=== PATIENT | female | born 1975 | race Caucasian/White ===

== ENCOUNTER 2018-05-20 09:28 | Emergency (ER) | payer OTHER ==
--- NOTE | 2018-05-20 10:23 | ED ---
Lower Extremity Injury HPI - General Chief Complaint: Extremity Injury, Lower Stated Complaint: Ankle Injury Time Seen by Provider: 05/20/18 09:48 Source: patient, RN notes reviewed, old records reviewed Mode of arrival: ambulatory Limitations: no limitations - History of Present Illness Initial Comments: this 43-year-old female presents emergency department today from her rehab facility with chief complaint of right ankle and foot pain. Patient reports she sprained her foot and ankle 3 weeks ago. She's had history of surgery on his foot and ankle. She also reports she's had surgery on the left foot and ankle proximally 3 months ago. Patient states that she is concerned that she may have irritated some of the hardware within her joints. Patient states that she is currently. With a boot on her left foot. Patient states she may have strained her right foot TAKE for her left. Patient states that she has had no other abnormal symptoms. - Related Data Previous Rx's Medication Instructions Recorded Ibuprofen [Motrin] 600 mg PO Q8HR PRN #20 tab 05/20/18 Allergies Allergy/AdvReac Type Severity Reaction Status Date / Time No Known Allergies Allergy Verified 05/20/18 09:36 Review of Systems ROS Statement: Those systems with pertinent positive or pertinent negative responses have been documented in the HPI. ROS Other: All systems not noted in ROS Statement are negative. Past Medical History Past Medical History: Asthma, Hypertension History of Any Multi-Drug Resistant Organisms: None Reported Additional Past Surgical History / Comment(s): right ankle surgery, left foot surgery, DNC Past Psychological History: Anxiety, Depression Smoking Status: Current every day smoker Past Alcohol Use History: Abuse, Heavy Past Drug Use History: None Reported General Exam - General Exam Comments Initial Comments: this is a 43-year-old female. Alert and oriented. No significant distress. Limitations: no limitations General appearance: alert, in no apparent distress Head exam: Present: atraumatic, normocephalic, normal inspection Eye exam: Present: normal appearance, PERRL, EOMI. Absent: scleral icterus, conjunctival injection, periorbital swelling ENT exam: Present: normal exam, mucous membranes moist Neck exam: Present: normal inspection. Absent: tenderness, meningismus, lymphadenopathy Respiratory exam: Present: normal lung sounds bilaterally. Absent: respiratory distress, wheezes, rales, rhonchi, stridor Cardiovascular Exam: Present: regular rate, normal rhythm, normal heart sounds. Absent: systolic murmur, diastolic murmur, rubs, gallop, clicks GI/Abdominal exam: Present: soft, normal bowel sounds. Absent: distended, tenderness, guarding, rebound, rigid Extremities exam: Present: normal inspection, full ROM, normal capillary refill. Absent: tenderness, pedal edema, joint swelling, calf tenderness Left Ankle exam: Present: normal inspection, full ROM Foot/Toe exam: Present: full ROM. Absent: normal inspection (Patient is well- appearing linear incision over the dorsal aspect of the foot measuring partly for 7 m. No evidence of erythema or drainage from the site.) Neurovascular tendon exam: Present: no vascular compromise Gait: observed and normal Right Lower Leg exam: Present: normal inspection, full ROM Ankle exam: Present: normal inspection, full ROM, tenderness (she reports tenderness over the lateral malleolus.) Foot/Toe exam: Present: normal inspection, full ROM Neurovascular tendon exam: Present: no vascular compromise Gait: observed and normal Back exam: Present: normal inspection Neurological exam: Present: alert, oriented X3, CN II-XII intact Psychiatric exam: Present: normal affect, normal mood Skin exam: Present: warm, dry, intact, normal color. Absent: rash Course Vital Signs 05/20/18 09:32 Temperature 98.2 F Pulse Rate 77 Respiratory 18 Rate Blood Pressure 155/107 O2 Sat by Pulse 100 Oximetry Medical Decision Making - Medical Decision Making 43-year-old female presents emergency department today which she plan bilateral knee pain. Patient's had multiple surgeries over both feet. Recent surgery on the left foot. Patient is mainly concerned today of her right foot after she had a rolled ankle injury approximately 3 weeks ago. Patient x-rays at this time are negative for any acute process. - Radiology Data Radiology results: report reviewed Post surgical change in bilateral lower extremities with incompletely united fracture of the base of the left second metatarsal although surgically fixated. No acute fracture dislocation of the right ankle or either foot. Disposition Clinical Impression: Foot sprain, Right ankle sprain Disposition: HOME SELF-CARE Condition: Good Instructions: Foot Sprain (ED), Ankle Sprain (ED) Additional Instructions: Patient advised to rest, ice, elevate extremity. Take antiinflammatory medication for pain. Patient is follow-up with treasury specialist. Return to emergency department if any alarming signs or symptoms occur. Patient should still ambulate with the brace. Prescriptions: Ibuprofen [Motrin] 600 mg PO Q8HR PRN #20 tab PRN Reason: Pain Is patient prescribed a controlled substance at d/c from ED?: No Referrals: Nonstaff,Physician [Primary Care Provider] - 1-2 days Time of Disposition: 10:50
--- NOTE | 2018-05-20 10:36 | XR ---
EXAMINATION TYPE: XR ankle complete RT, XR foot complete bilateral DATE OF EXAM: 05/20/2018 CLINICAL HISTORY: Bilateral ankle and foot pain after injury TECHNIQUE: Frontal, lateral and oblique images of the right ankles and bilateral feet were obtained. COMPARISON: None. FINDINGS: There is no acute fracture/dislocation evident in the right ankle. Lateral surgical fixat ion plate overlies the fibula with multiple transcortical screws. Abutment of the lateral fixation pl ate with the lateral fibular distal cortex is maintained. Ankle mortise is also maintained. The overl hari soft tissue appears unremarkable. There is no acute fracture or dislocation evident in either foot. There is a surgically fixated incom pletely united fracture of the base of the second metatarsal. Fixation plate and transcortical screws are noted without hardware fracture. Overlying soft tissue is unremarkable. IMPRESSION: Postsurgical changes of the bilateral lower extremities with incompletely united fracture of the base of the second left metatarsal although surgically fixated. No acute fracture or dislocat ion in the right ankle or either foot.
[2018-05-20 11:10] VITALS: BP 140/99; PULSE 78; RESP 16; TEMP 97.9
== END 2018-05-20 11:18 | disposition home or self-care (01) ==
LOC: EC 09:28
DX: S93.401A Sprain of unspecified ligament of right ankle, initial encounter (principal); S93.601A Unspecified sprain of right foot, initial encounter; F17.200 Nicotine dependence, unspecified, uncomplicated; Z98.890 Other specified postprocedural states; X50.9XXA Other and unspecified overexertion or strenuous movements or postures, initial encounter
CPT/HCPCS: 99284